=== PATIENT | female | born 1960 | race Asian ===

== ENCOUNTER 2017-05-21 14:48 | Emergency (ER) | payer MEDICAID, OTHER ==
[~2017-05-21] VITALS: Ht 157.5 cm; Wt 59.1 kg
[2017-05-21] MEDS ORDERED: ONDANSETRON ODT 4 MG PO ONE (15:30)
[2017-05-21] MEDS ORDERED: ONDANSETRON ODT 4 MG ONE (15:38)
[2017-05-21 16:17] LABS: HEMATOCRIT 42.2 % (34.6-47.8); HEMOGLOBIN 14.4 g/dL (11.7-16.4); WHITE BLOOD COUNT 10.3 x10^3/uL (3.4-10)
[2017-05-21 16:20] LABS: BLOOD UREA NITROGEN 19 mg/dL (7-18)
[2017-05-21 16:25] LABS: ASPARTATE AMINO TRANSFERASE 18 U/L (15-37)
[2017-05-21] MEDS ORDERED: SODIUM CHLORIDE 0.9% 1,000ML IVBOLUS ONE (16:30)
[2017-05-21] MEDS ORDERED: SODIUM CHLORIDE FLUSH 10ML SYR IVF ONE (16:30)
[2017-05-21] MEDS ORDERED: OMNIPAQUE 350 MG/ML, 100ML BOTTLE ONE (18:23)
[2017-05-21 19:17] VITALS: BP 118/68
== END 2017-05-21 19:30 | disposition home or self-care (01) ==
LOC: ED 19:24
DX: R14.0 Abdominal distension (gaseous) (principal); R19.7 Diarrhea, unspecified; R10.9 Unspecified abdominal pain
CPT/HCPCS: 36415; 74177; 76700; 80053; 81003; 83605; 83690; 85025; 96360; 99285; J7030; Q0162; Q9967

== ENCOUNTER 2017-07-02 15:11 | Emergency (ER) | payer MEDICAID, OTHER ==
[~2017-07-02] VITALS: Ht 160 cm; Wt 62.0 kg
[2017-07-02 15:28] VITALS: BP 166/79
== END 2017-07-02 15:45 | disposition left against medical advice (07) ==
LOC: ED 15:38
DX: F10.129 Alcohol abuse with intoxication, unspecified (principal); G89.3 Neoplasm related pain (acute) (chronic); R10.9 Unspecified abdominal pain; C16.9 Malignant neoplasm of stomach, unspecified
CPT/HCPCS: 99283

== ENCOUNTER 2018-06-01 20:35 | Observation (INO) | payer MEDICAID ==
[~2018-06-01] VITALS: Ht 157.5 cm; Wt 50.0 kg
[2018-06-01 21:34] LABS: BASOPHILS # (AUTO) 0.04 x10^3/uL (0-0.1); BASOPHILS % (AUTO) 1 % (0-1); EOSINOPHILS # (AUTO) 0.17 x10^3/uL (0-0.4); EOSINOPHILS % (AUTO) 2 % (1-7); LYMPHOCYTES # (AUTO) 3.49 x10^3/uL (1-3.4); LYMPHOCYTES % (AUTO) 43 % (22-44); MD NO; MEAN CORPUSCULAR HEMOGLOBIN 31.5 pg (27.0-34.8); MEAN CORPUSCULAR VOLUME 92.6 fL (80-100); MEAN PLATELET VOLUME 7.6 fL (7.4-10.4); MONOCYTES # (AUTO) 0.47 x10^3/uL (0.2-0.8); MONOCYTES % (AUTO) 6 % (2-9); NEUTROPHILS # (AUTO) 3.91 x10^3/uL (1.8-6.8); NEUTROPHILS % (AUTO) 48 % (42-75); PLATELET COUNT 384 x10^3/uL (130-400); RED BLOOD COUNT 4.72 x10^6/uL (3.82-5.3); RED CELL DISTRIBUTION WIDTH 13.6 % (9.6-15.2)
[2018-06-01 21:45] LABS: ALBUMIN 3.6 g/dL (3.4-5.0); ANION GAP 10 mmol/L (5-15); CALCIUM 8.8 mg/dL (8.5-10.1); CHLORIDE 113 mmol/L (98-107)
[2018-06-01 21:49] LABS: ALANINE AMINOTRANSFERASE 22 U/L (12-78); ALKALINE PHOSPHATASE 77 U/L (45-117); BILIRUBIN,TOTAL 0.7 mg/dL (0.2-1.0); CREATININE 0.57 mg/dL (0.55-1.02); SALICYLATE LEVEL 2.3 mg/dL (2.8-20.0); TOTAL PROTEIN 7.4 g/dL (6.4-8.2)
[2018-06-01 21:50] LABS: ACETAMINOPHEN < 2 mcg/mL (10-30)
[2018-06-02 02:55] LABS: MICROSCOPIC AUTO
[2018-06-02 02:56] LABS: CULTURE INDICATED? YES
[2018-06-02 03:04] LABS: AMPHETAMINE SCREEN, URINE Negative (Negative); BARBITURATE SCREEN, URINE Negative (Negative); BENZODIAZEPINE SCREEN, URINE Negative (Negative); CANNABINOID SCREEN, URINE Negative (Negative); COCAINE SCREEN, URINE Negative (Negative); METHADONE SCREEN, URINE Negative (Negative); OPIATE SCREEN, URINE Negative (Negative)
[2018-06-02] MEDS ORDERED: TRAZODONE 50MG TABLET PO PRN (09:00)
[2018-06-02] MEDS ORDERED: ACETAMINOPHEN 325 MG TABLET PO PRN (09:00)
[2018-06-02] MEDS ORDERED: LORazepam 1MG TABLET PO PRN ×2 (09:00→17:30)
[2018-06-02] MEDS ORDERED: THIAMINE 100MG TABLET ONE (09:58)
[2018-06-02] MEDS ORDERED: NICOTINE 14MG/24 HR PATCH.TD24 ONE (09:58)
[2018-06-02] MEDS: FOLIC ACID 1 MG TABLET PO SCH (11:03)
[2018-06-02] MEDS: MULTIVITAMIN 1 TABLET PO SCH (11:03)
[2018-06-02] MEDS: THIAMINE 100MG TABLET PO SCH (11:04)
[2018-06-02] MEDS: NICOTINE 14MG/24 HR PATCH.TD24 TD SCH (11:04)
[2018-06-02 23:51] VITALS: BP 106/70
[2018-06-03 08:12] VITALS: BP 117/72
[2018-06-03] MEDS: THIAMINE 100MG TABLET PO SCH (08:37)
[2018-06-03] MEDS: MULTIVITAMIN 1 TABLET PO SCH (08:37)
[2018-06-03] MEDS: FOLIC ACID 1 MG TABLET PO SCH (08:37)
[2018-06-03] MEDS: NICOTINE 14MG/24 HR PATCH.TD24 TD SCH (08:41)
== END 2018-06-03 09:30 ==
LOC: ED 22:36 → EDIP 06-02 07:34 → 2N 06-02 20:07
PROVIDERS: ADMIT Internal Medicine; ATTEND Internal Medicine
DX: R45.851 Suicidal ideations (principal); R11.2 Nausea with vomiting, unspecified; F10.121 Alcohol abuse with intoxication delirium; F17.200 Nicotine dependence, unspecified, uncomplicated; F33.2 Major depressive disorder, recurrent severe without psychotic features; K29.70 Gastritis, unspecified, without bleeding; Z85.028 Personal history of other malignant neoplasm of stomach; Z91.5 Personal history of self-harm
CPT/HCPCS: 36415; 80053; 80307; 80329; 81001; 85025; 87086; 99285; G0378; G0480

== ENCOUNTER 2018-07-17 18:09 | Emergency (ER) | payer MEDICAID ==
[~2018-07-17] VITALS: Ht 157.5 cm; Wt 54.0 kg
[2018-07-17 18:13] VITALS: BP 119/86
[2018-07-17 19:30] LABS: MICROSCOPIC AUTO
[2018-07-17] MEDS ORDERED: LORazepam 1MG TABLET PO ONE (19:30)
[2018-07-17 19:34] LABS: CULTURE INDICATED? NO
[2018-07-17 19:35] LABS: BASOPHILS # (AUTO) 0.07 x10^3/uL (0-0.1); BASOPHILS % (AUTO) 1 % (0-1); EOSINOPHILS # (AUTO) 0.06 x10^3/uL (0-0.4); EOSINOPHILS % (AUTO) 1 % (1-7); LYMPHOCYTES % (AUTO) 38 % (22-44); MD NO; MEAN CORPUSCULAR HEMOGLOBIN 32.4 pg (27.0-34.8); MEAN CORPUSCULAR HGB CONC 34.3 g/dL (32.4-35.8); MEAN CORPUSCULAR VOLUME 94.4 fL (80-100); MEAN PLATELET VOLUME 6.9 fL (7.4-10.4); MONOCYTES # (AUTO) 0.44 x10^3/uL (0.2-0.8); MONOCYTES % (AUTO) 6 % (2-9); NEUTROPHILS # (AUTO) 3.84 x10^3/uL (1.8-6.8); NEUTROPHILS % (AUTO) 54 % (42-75); PLATELET COUNT 373 x10^3/uL (130-400); RED CELL DISTRIBUTION WIDTH 13.8 % (9.6-15.2)
[2018-07-17 19:35] LABS: AMPHETAMINE SCREEN, URINE Positive (Negative); BARBITURATE SCREEN, URINE Negative (Negative); BENZODIAZEPINE SCREEN, URINE Negative (Negative); CANNABINOID SCREEN, URINE Negative (Negative); COCAINE SCREEN, URINE Negative (Negative); METHADONE SCREEN, URINE Negative (Negative); OPIATE SCREEN, URINE Negative (Negative)
[2018-07-17] MEDS ORDERED: LORazepam 1MG TABLET ONE (19:36)
[2018-07-17 19:48] LABS: ALBUMIN 3.7 g/dL (3.4-5.0); ANION GAP 11 mmol/L (5-15); CALCIUM 8.5 mg/dL (8.5-10.1); CHLORIDE 108 mmol/L (98-107); CREATININE 0.57 mg/dL (0.55-1.02); SALICYLATE LEVEL 2.6 mg/dL (2.8-20.0)
[2018-07-17 19:58] LABS: FREE T4 (FREE THYROXINE) 1.16 ng/dL (0.76-1.46)
[2018-07-17 20:02] LABS: ACETAMINOPHEN < 2 mcg/mL (10-30)
== END 2018-07-17 22:25 | disposition home or self-care (01) ==
LOC: ED 19:30
DX: F32.9 Major depressive disorder, single episode, unspecified (principal); F41.1 Generalized anxiety disorder; R06.4 Hyperventilation; F10.10 Alcohol abuse, uncomplicated; F17.210 Nicotine dependence, cigarettes, uncomplicated
CPT/HCPCS: 36415; 80048; 80307; 80329; 81001; 82040; 84439; 84443; 85025; 99284; G0480